=== PATIENT | male | born 1930 | race Caucasian/White ===

== ENCOUNTER 2017-01-13 16:11 | Emergency (ER) | payer MEDICARE, BC ==
[~2017-01-13 16:11] MED LIST: EPINEPHrine 10 ML SYRINGE (0.1 MG/ML) ONE
[2017-01-13 16:16] LABS: Glucose,Whole Blood 156 mg/dL (75-99)
--- NOTE | 2017-01-13 16:29 | ED ---
General Adult HPI - General Stated complaint: CARDIAC ARREST Time Seen by Provider: 01/13/17 16:11 Source: EMS Mode of arrival: EMS Limitations: altered mental status, physical limitation - History of Present Illness Initial comments: Patient is an 86-year-old male presenting to the emergency department with cardiac arrest. Patient arrives libertarian one by EMS. Nursing report states patient became unresponsive at 1500. EMS reports they received a call at 1509 and found patient unresponsive and pulseless. They did briefly have return of pulses for about 5 minutes however that was 45 minutes prior to arrival. Patient arrived around 1609. Patient reportedly did have a small bloody bowel movement followed by seizure type activity followed by unresponsiveness. Patient is unresponsive and provides no history. - Related Data Home Medications Medication Instructions Recorded Confirmed Thyroid,Pork [[place] Thyroid] 60 mg PO DAILY 08/12/14 12/19/15 Ascorbic Acid [Vitamin C] 1,000 mg PO DAILY 06/11/15 12/19/15 Ubidecarenone [Co Q-10] 100 mg PO DAILY 06/11/15 12/19/15 Aspirin EC [Ecotrin Low Dose] 81 mg PO DAILY 12/19/15 12/19/15 Donepezil [Aricept] 10 mg PO DAILY 12/19/15 12/19/15 Isosorbide Mononitrate ER [Imdur] 30 mg PO DAILY 12/19/15 12/19/15 Magnesium Oxide [Mag-Ox] 400 mg PO DAILY 12/19/15 12/19/15 Memantine HCl [Namenda Xr] 28 mg PO DAILY 12/19/15 12/19/15 Previous Rx's Medication Instructions Recorded QUEtiapine [SEROquel] 25 mg PO HS #30 tab 12/22/15 traMADol HCL [Ultram] 50 mg PO Q6H PRN #30 12/22/15 Allergies Allergy/AdvReac Type Severity Reaction Status Date / Time No Known Allergies Allergy Verified 06/11/15 03:07 Review of Systems ROS Statement: Those systems with pertinent positive or pertinent negative responses have been documented in the HPI. ROS Other: All systems not noted in ROS Statement are negative. 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 History of Any Multi-Drug Resistant Organisms: None Reported Past Surgical History: Adenoidectomy, Appendectomy, Coronary Bypass/CABG, Orthopedic Surgery, Tonsillectomy Additional Past Surgical History / Comment(s): TRIPLE CABG 2011., RIGHT SHOULDER SURGERY, hemorroidectomy,HX FALLS, LT TEMPORAL ARTERY BX Past Anesthesia/Blood Transfusion Reactions: No Reported Reaction Past Psychological History: No Psychological Hx Reported Additional Psychological History / Comment(s): PT CURRENTLY LIVES WITH AND DAUGHTER-NO LONGER DRIVES. SERVED IN [employer] WHEN YOUNGER AND RETIRED , WORKED A [employer]ED [employer]. Smoking Status: Former smoker Past Alcohol Use History: None Reported Additional Past Alcohol Use History / Comment(s): smoked for approx 15 years 1ppd, quit 1960 Past Drug Use History: None Reported - Past Family History Brother(s) Family Medical History: Cancer Additional Family Medical History / Comment(s): unsure of type. Father Family Medical History: Unable to Obtain Mother Family Medical History: Myocardial Infarction (DE) Additional Family Medical History / Comment(s): ? DE PER PT General Exam Limitations: altered mental status, physical limitation General appearance: obtunded Head exam: Present: atraumatic Eye exam: Present: other (Pupils fixed and dilated) ENT exam: Present: normal oropharynx, other (Intubated) Neck exam: Present: normal inspection Respiratory exam: Present: other (No spontaneous breath sounds. Equal breath sounds with bagging insufflation.) Cardiovascular Exam: Present: other (No heart sounds. No pulse.) GI/Abdominal exam: Absent: tenderness Extremities exam: Present: normal inspection Neurological exam: Present: other (Unresponsive. GCS 3.) Psychiatric exam: Present: other (Unresponsive) Skin exam: Present: normal color Course Vital Signs 01/13/17 16:11 Temperature 97 F L Pulse Rate 82 Blood Pressure 0/0 O2 Sat by Pulse 0 L Oximetry - Reevaluation(s) Reevaluation #1: 01/13/17 16:48 Case discussed with medical center director Ese who does agree to release the body. Case was also discussed with practitioner, Julia working with Dr. Moore who does not have further concerns. Medical Decision Making - Medical Decision Making Patient did have brief return of faint pulse. This lasted less than 1 minute and patient lost pulses again. At 1623 patient was found to be pulseless, pupils fixed and dilated. No heart sounds. No breath sounds. No response to pain. Time of is 1623. - Lab Data Lab Results 01/13/17 Range/Units 16:15 POC Glucose (mg/dL) 156 H (75-99) mg/dL POC Glu Gas Flow Regulator ID Fang Carl Disposition Clinical Impression: Cardiopulmonary arrest Disposition: Referrals: Faizan Moore MD [Primary Care Provider] - 1-2 days Time of Disposition: 16:48 Preliminary Cause of : Cardiopulmonary arrest
[2017-01-13 16:48] VITALS: BP 0/0; PULSE 82; TEMP 97
== END 2017-01-13 17:09 | disposition expired ==
LOC: EC 16:11
DX: I46.9 Cardiac arrest, cause unspecified (principal); R40.2432 Glasgow coma scale score 3-8, at arrival to emergency department; R41.82 Altered mental status, unspecified; R56.9 Unspecified convulsions; I25.10 Atherosclerotic heart disease of native coronary artery without angina pectoris; E07.9 Disorder of thyroid, unspecified; F03.90 Unspecified dementia, unspecified severity, without behavioral disturbance, psychotic disturbance, mood disturbance, and anxiety; Z87.891 Personal history of nicotine dependence; Z79.82 Long term (current) use of aspirin; Z79.899 Other long term (current) drug therapy; Z87.39 Personal history of other diseases of the musculoskeletal system and connective tissue; Z95.1 Presence of aortocoronary bypass graft; Z82.41 Family history of sudden cardiac death
CPT/HCPCS: 99285 ×2; 36415; J0171